=== PATIENT | female | born 1955 | race African-American/Black ===

== ENCOUNTER 2018-03-07 14:20 | Inpatient (IN) | payer SELFPAY ==
[~2018-03-07] VITALS: Ht 152.4 cm; Wt 68.7 kg
[2018-03-07] MEDS ORDERED: MECLIZINE 25MG TABLET PO ONE (16:15)
[2018-03-07 16:47] LABS: CLARITY URINE CLEAR (CLEAR); COLOR URINE YELLOW (YELLOW); KETONES URINE NEGATIVE (NEGATIVE); LEUKOCYTE ESTERASE URINE NEGATIVE (NEGATIVE); NITRITE URINE NEGATIVE (NEGATIVE); OCCULT BLOOD URINE TRACE (NEGATIVE); PH URINE 5.5 (4.5-8.0); PROTEIN URINE NEGATIVE (NEGATIVE); SPECIFIC GRAVITY URINE 1.014 (1.005-1.030); UROBILINOGEN URINE 0.2 E.U./dL (0.2-1.0)
[2018-03-07 16:47] LABS: BASOPHILS % 0.8 % (0.0-2.0); EOSINOPHILS % 1.2 % (0.0-5.0); HEMATOCRIT. 40.4 % (36.0-48.0); HEMOGLOBIN. 13.7 g/dL (12.0-16.0); MEAN CORPUSCULAR HEMOGLOBIN 27.5 pg (28.0-32.0); MEAN CORPUSCULAR VOLUME 81.3 fL (81.0-99.0); MEAN PLATELET VOLUME 7.7 fl (7.4-10.4); MONOCYTES % 10.2 % (2.0-8.0); NEUTROPHILS % 54.8 % (40.0-76.0); PLATELET 274 x1000/uL (130-400); RED BLOOD CELL COUNT 4.96 mill/uL (4.2-5.4); RED CELL DISTRIBUTION WIDTH 12.9 % (11.6-14.6)
[2018-03-07 16:54] LABS: D-DIMER 0.19 mg/L FEU (<0.50); INR 1.1; PROTHROMBIN TIME 10.6 sec (9.1-11.1)
[2018-03-07 16:56] LABS: CHLORIDE 102 mEq/L (98-107)
[2018-03-07] MEDS ORDERED: DEXTROSE 50% WATER 50ML SYRINGE IV PRN (19:00)
[2018-03-07] MEDS ORDERED: ZOLPIDEM TARTRATE 5MG TABLET PO PRN (19:00)
[2018-03-07] MEDS ORDERED: ACETAMINOPHEN 325MG TABLET PO PRN (19:00)
[2018-03-07] MEDS ORDERED: NITROGLYCERIN 0.4MG TABLET SL SL PRN (19:00)
[2018-03-07] MEDS ORDERED: NA PHOS,M-B/NA PHOS,DI-BA ENEMA 118ML PR PRN (19:00)
[2018-03-07] MEDS ORDERED: GUAIFENESIN 200MG/10ML SUGAR FREE UDC PO PRN (19:00)
[2018-03-07] MEDS ORDERED: IPRATROPIUM/ALBUTEROL 0.5-3(2.5)MG/3ML NEB INH PRN (19:00)
[2018-03-07] MEDS ORDERED: DOCUSATE SODIUM 100MG CAPSULE PO PRN (19:00)
[2018-03-07] MEDS ORDERED: KETOROLAC 15MG/ML VIAL IV PRN (19:00)
[2018-03-07] MEDS ORDERED: ONDANSETRON HCL 4MG/2ML INJ IV PRN (19:00)
[2018-03-07] MEDS ORDERED: MAGNESIUM/ALUMINUM HYDROXIDE/SIMETHICONE 30ML UDC PO PRN (19:00)
[2018-03-07] MEDS ORDERED: CLONIDINE 0.1MG TABLET PO PRN (19:00)
[2018-03-07 22:00] VITALS: BP 159/84
[2018-03-07 23:53] LABS: CREATINE KINASE 140 IU/L (26-192); CREATINE KINASE MB FRACTION 1.8 ng/mL (0.5-3.6)
[2018-03-08] VITALS: BP 103/47
[2018-03-08 04:00] VITALS: BP 129/75
[2018-03-08 06:00] VITALS: BP 129/75
[2018-03-08] MEDS ORDERED: SODIUM CHLORIDE 0.9% INJ 3ML FLUSH IVF SCH (06:00)
[2018-03-08] MEDS ORDERED: BLOOD SUGAR DIAGNOSTIC STRIP TEST SCH (07:40)
[2018-03-08 07:55] LABS: CREATINE KINASE 148 IU/L (26-192); CREATINE KINASE MB FRACTION 1.7 ng/mL (0.5-3.6)
[2018-03-08 08:00] VITALS: BP 119/61
[2018-03-08] MEDS ORDERED: INSULIN LISPRO 100 UNITS/ML SUBCUT SCH (08:10)
[2018-03-08] MEDS ORDERED: FAMOTIDINE 20MG TABLET PO SCH (09:00)
[2018-03-08] MEDS ORDERED: ASCORBIC ACID 500 MG TABLET PO SCH (09:00)
[2018-03-08] MEDS ORDERED: LISINOPRIL 20MG TABLET PO SCH (09:00)
[2018-03-08] MEDS ORDERED: ZINC SULFATE 220 MG ( 50 ) CAPSULE PO SCH (09:00)
[2018-03-08] MEDS ORDERED: ASPIRIN 325MG EC TABLET PO SCH (09:00)
[2018-03-08] MEDS ORDERED: ENOXAPARIN 40MG/0.4ML SYR SUBCUT SCH (09:00)
[2018-03-08 12:00] VITALS: BP 100/50
[2018-03-08 12:26] VITALS: BP 100/50
== END 2018-03-08 13:20 | disposition home or self-care (01) | DRG 204 ==
LOC: ER 14:20 → 7WST 17:52 → EDBEDREQ 17:56 → ENRESERV 19:44
PROVIDERS: ADMIT Internal Medicine; ATTEND Internal Medicine
DX: R55 Syncope and collapse (principal); E11.9 Type 2 diabetes mellitus without complications; E78.00 Pure hypercholesterolemia, unspecified; I10 Essential (primary) hypertension; R42 Dizziness and giddiness
CPT/HCPCS: 36415; 71045; 80061; 82550; 82553; 82962; 83036; 83880; 84484; 85379; 93005; 99285; J1650; J1815; J8597

== ENCOUNTER 2018-04-12 15:47 | Emergency (ER) | payer SELFPAY ==
[~2018-04-12] VITALS: Ht 157.5 cm; Wt 63.2 kg
[2018-04-12] MEDS ORDERED: ALBUTEROL (0.083%) 2.5MG/3ML NEB HHN STA (16:41)
[2018-04-12] MEDS ORDERED: IPRATROPIUM BROMIDE (0.02%) 0.5MG/2.5ML NEB HHN STA (16:41)
[2018-04-12 18:30] VITALS: BP 123/66
== END 2018-04-12 18:40 | disposition home or self-care (01) ==
LOC: ER 15:47
DX: J20.9 Acute bronchitis, unspecified (principal); I10 Essential (primary) hypertension; E78.00 Pure hypercholesterolemia, unspecified; E11.9 Type 2 diabetes mellitus without complications
CPT/HCPCS: 71045; 82962; 99283; J7611

== ENCOUNTER 2020-09-23 19:12 | Emergency (ER) | payer SELFPAY ==
[~2020-09-23] VITALS: Ht 162.6 cm; Wt 87.0 kg
[2020-09-23] MEDS ORDERED: METHYLPREDNISOLONE SOD SUCC 125 MG/2 ML VIAL IV STA (19:48)
[2020-09-23] MEDS ORDERED: IPRATROPIUM BROMIDE (0.02%) 0.5MG/2.5ML NEB HHN STA (19:48)
[2020-09-23] MEDS ORDERED: ALBUTEROL (0.083%) 2.5MG/3ML NEB HHN STA (19:48)
[2020-09-23] MEDS ORDERED: ASPIRIN 81MG TABLET PO ONE (20:00)
[2020-09-23 20:23] LABS: BASOPHILS % 0.7 % (0.0-2.0); EOSINOPHILS % 1.9 % (0.0-5.0); HEMATOCRIT. 35.2 % (36.0-48.0); HEMOGLOBIN. 11.8 g/dL (12.0-16.0); LYMPHOCYTES % 33.3 % (20.0-50.0); MEAN CORPUSCULAR HEMOGLOBIN 27.8 pg (28.0-32.0); MEAN CORPUSCULAR VOLUME 83.3 fL (81.0-99.0); MEAN PLATELET VOLUME 8.2 fl (7.4-10.4); MONOCYTES % 11.1 % (2.0-8.0); PLATELET 205 x1000/uL (130-400); RED BLOOD CELL COUNT 4.23 mill/uL (4.2-5.4); RED CELL DISTRIBUTION WIDTH 13.9 % (11.6-14.6)
[2020-09-23 20:29] LABS: CHLORIDE 103 mEq/L (98-107)
[2020-09-23] MEDS ORDERED: ALBU6.7H9 INH (22:51)
[2020-09-23] MEDS ORDERED: P50 MT (22:51)
[2020-09-24 00:14] VITALS: BP 147/78
== END 2020-09-24 01:34 | disposition home or self-care (01) ==
LOC: ER 19:12
DX: J45.909 Unspecified asthma, uncomplicated (principal); E11.9 Type 2 diabetes mellitus without complications; I10 Essential (primary) hypertension; E78.00 Pure hypercholesterolemia, unspecified
CPT/HCPCS: 36415; 71045; 80053; 83880; 84484; 85025; 93005; 94640; 96374; 99285; J2930; Z7610

== ENCOUNTER 2023-11-20 12:00 | Emergency (ER) | payer MEDICAID ==
[~2023-11-20] VITALS: Ht 165.1 cm; Wt 72.6 kg
[~2023-11-20 12:00] MED LIST: ALBU6.7H3 INH; P50 MT
[2023-11-20 12:15] VITALS: BP 168/71; PULSE 66; RESP 16; TEMP 98.2; O2SAT 96
[2023-11-20 12:54] LABS: BASOPHILS % 0.7 % (0.0-2.0); EOSINOPHILS % 2.8 % (0.0-5.0); HEMATOCRIT. 38.7 % (36.0-48.0); HEMOGLOBIN. 12.4 g/dL (12.0-16.0); LYMPHOCYTES % 33.3 % (20.0-50.0); MEAN CORPUSCULAR HEMOGLOBIN 26.6 pg (28.0-32.0); MEAN CORPUSCULAR HGB CONC 32.1 g/dL (31.0-37.0); MEAN CORPUSCULAR VOLUME 82.9 fL (81.0-99.0); MEAN PLATELET VOLUME 8.7 fl (7.4-10.4); MONOCYTES % 11.6 % (2.0-8.0); NEUTROPHILS % 51.6 % (40.0-76.0); PLATELET 206 x1000/uL (130-400); RED BLOOD CELL COUNT 4.67 mill/uL (4.2-5.4); RED CELL DISTRIBUTION WIDTH 14.1 % (11.6-14.6); WHITE BLOOD COUNT 5.3 x1000/uL (4.5-11.0)
[2023-11-20 12:55] LABS: CHLORIDE 98 mEq/L (98-107); POTASSIUM 3.9 mEq/L (3.5-5.1); SODIUM 133 mEq/L (136-145)
[2023-11-20 12:56] LABS: CALCIUM 9.3 mg/dL (8.7-10.4); CARBON DIOXIDE 27 mEq/L (21-32)
[2023-11-20 13:01] LABS: CREATININE 0.9 mg/dL (0.6-1.0); INR 0.9; PROTHROMBIN TIME 10.5 sec (9.6-11.0); UREA NITROGEN BLOOD 12 mg/dL (9-23)
[2023-11-20 13:03] LABS: BETA HYDROXYBUTYRATE 0.3 mMol/L (0.0-0.3)
[2023-11-20 13:54] LABS: TROPONIN I HIGH SENSITIVITY < 4 ng/L (3.0-34)
[2023-11-20 13:56] LABS: GLUCOSE 421 mg/dL (70-105)
[2023-11-20] MEDS: SODIUM CHLORIDE 0.9% 1,000 ML IV ONE (14:21)
[2023-11-20 17:39] LABS: CLARITY URINE CLEAR (CLEAR); COLOR URINE DARK YELLOW (YELLOW); GLUCOSE URINE 3+ (NEGATIVE); KETONES URINE NEGATIVE (NEGATIVE); LEUKOCYTE ESTERASE URINE NEGATIVE (NEGATIVE); NITRITE URINE NEGATIVE (NEGATIVE); OCCULT BLOOD URINE NEGATIVE (NEGATIVE); PROTEIN URINE NEGATIVE (NEGATIVE); UROBILINOGEN URINE 0.2 E.U./dL (0.2-1.0)
[2023-11-20 17:51] LABS: BACTERIA URINE 1+; RBC URINE 0-2 /hpf (0-2); SQUAMOUS EPITHELIAL CELL URINE FEW /lpf (RARE/1+); WBC URINE 0-2 /hpf (0-2); YEAST URINE 1+
== END 2023-11-20 16:44 | disposition home or self-care (01) ==
LOC: ER 13:18
DX: E11.65 Type 2 diabetes mellitus with hyperglycemia (principal); E78.00 Pure hypercholesterolemia, unspecified; I10 Essential (primary) hypertension; Z68.26 Body mass index [BMI] 26.0-26.9, adult
CPT/HCPCS: 80048; 81003; 82010; 82962; 85025; 85610; 84484; 36415; 71045; 93005; 96360; 99285; J7030; Z7610 ×2